=== PATIENT | female | born 1990 | race Caucasian/White ===

== ENCOUNTER 2018-07-21 12:06 | Emergency (ER) | payer BC ==
--- NOTE | 2018-07-21 13:14 | EDPHY ---
H & P Smoking Status: Never smoked Time Seen by Provider: 07/21/18 12:47 HPI/ROS: Chief complaint: Left ear discomfort History of present illness: This is a 28-year-old female who presents to the emergency department for left ear discomfort. She reports the onset of symptoms approximately 3 days ago. She describes a soreness. Symptoms are intermittent in nature. She denies precipitating factors. She denies alleviating factors. She denies other associated signs or symptoms including no fevers, no URI like symptoms, no headache, no dizziness or vertigo, no changes in hearing, no discharge from the ear. She has no other complaints today. (Andrew Maki) Physical Exam: General Appearance: Alert and no distress. Eyes: Pupils equal and round no injection. ENT: Patient has a serous effusion to the left ear. Right TM unremarkable. The external auditory canals, external ears and surrounding soft tissue including over the mastoids are unremarkable. Nasopharynx is not injected. There is no rhinorrhea. Oropharynx is not injected. There is no edema. There is no exudate. There is no asymmetry. The uvula is midline. No elevation of the tongue. There is no hoarseness, no drooling, no trismus, no stridor. Respiratory: Chest is non tender, lungs are clear to auscultation. Cardiac: regular rate and rhythm Musculoskeletal: Neck is supple and non tender. Extremities have full range of motion and are non tender. Skin: No rashes or lesions. Neurological: Alert and oriented x4. Cranial nerves 2-12 grossly intact. Strength and sensation intact and symmetrical. (Andrew Maki) Constitutional: Initial Vital Signs Temperature (C) 37.1 C 07/21/18 12:09 Heart Rate 60 07/21/18 12:09 Respiratory Rate 16 07/21/18 12:09 Blood Pressure 108/70 07/21/18 12:09 O2 Sat (%) 98 07/21/18 12:09 O2 Delivery Mode Room Air Allergies/Adverse Reactions: No Known Allergies Allergy (Unverified 07/21/18 12:09) Home Medications: Medication Instructions Recorded Lexapro 07/21/18 predniSONE 20 mg PO DAILY 3 Days tablet 07/21/18 MDM/Departure - [facility] ED Course/Re-evaluation: Patient is seen under the supervision of my secondary supervising physician Dr. Cleopatra Crawford. Patient presents for left ear pain. She is nontoxic. Vital signs are stable. Physical exam does reveal a mild serous effusion. I do not appreciate other significant findings. I will treat with ibuprofen and a small dose of prednisone. She is referred to ENT for further evaluation and care. Return precautions are given. The patient voiced understanding and agreement with plan. (Andrew Maki) The patient was evaluated and managed by the physician assistant in nursing. I have reviewed this chart and I agree with the findings and plan of care as documented , as indicated by my signature. I am the secondary supervising physician. ( Cleopatra Crawford) Differential Diagnosis: Included but not limited to otitis media, otitis externa, serous effusion, mastoiditis (Andrew Maki) - Depart Disposition: Home, Routine, Self-Care Clinical Impression: Left ear pain Condition: Good Instructions: Earache (ED) Additional Instructions: Follow-up with ENT next week for recheck Use ibuprofen 600 mg 3 times a day for the next 2-3 days for pain control Take prednisone as directed if ibuprofen does not help If symptoms worsen or new symptoms develop return to the emergency room for recheck Prescriptions: predniSONE 20 mg PO DAILY 3 Days tablet Referrals: NONE *PRIMARY CARE P,. [Primary Care Provider] - As per Instructions Bernard Madrid MD [Medical Doctor] - As per Instructions
[2018-07-21 13:27] VITALS: BP 107/74
== END 2018-07-21 13:25 | disposition home or self-care (01) ==
DX: H92.02 Otalgia, left ear (principal)